=== PATIENT | male | born 1955 | race Two or more races ===

== ENCOUNTER 2023-12-08 10:05 | Emergency (ER) | payer OTHER ==
[~2023-12-08] VITALS: Ht 177.8 cm; Wt 82.6 kg
[2023-12-08] MEDS ORDERED: LEVODOPA25 GM (10:31)
[2023-12-08] MEDS ORDERED: ARIPIPRAZOLE15 MG PO (10:31)
[2023-12-08] MEDS ORDERED: WELLBUTRIN XL300 MG PO (10:32)
[2023-12-08] MEDS ORDERED: KETOROLAC TROMETHAMINE 30 MG VIAL IM ONE (11:30)
== END 2023-12-08 14:08 | disposition home or self-care (01) ==
LOC: ER 10:06
DX: M79.10 Myalgia, unspecified site (principal)
CPT/HCPCS: 73502; 73551; 96372; 99283; J1885